=== PATIENT | female | born 1995 | race Caucasian/White ===

== ENCOUNTER 2021-05-26 09:38 | Observation (INO) ==
[2021-05-26] MEDS ORDERED: SODIUM CHLORIDE 0.9% 1,000 ML IV STA (11:25)
[2021-05-26] MEDS ORDERED: ONDANSETRON 4 MG/2 ML VIAL IV STA ×2 (11:25→15:31)
[2021-05-26 12:01] LABS: Bacteria,Urine Occasional /HPF (Few); Blood, Urine Moderate mg/dL (Negative); Glucose,Urine (UA) Negative (Negative); Ketones,Urine 80 mg/dL (Negative); Mucus,Urine Many /LPF (Occasional); Nitrite,Urine Negative (Negative); Protein,Urine 100 MG/DL; RBC,Urine 6 /HPF (0-4); Squamous Epithelial Cell,Urine Few /HPF (0-10); Urine Appearance Slightly Hazy (Clear); Urine Color Amber (Yellow); Urine Specific Gravity 1.032 (1.001-1.035)
[2021-05-26 12:07] LABS: Bilirubin,Urine Small mg/dL (Negative)
[2021-05-26 12:30] LABS: Basophils % 0.3 % (0.0-0.8); Eosinophils % 0.2 % (0.00-10.9); Hematocrit 43.8 VOL% (35.7-47.0); Hemoglobin 15.5 GM/DL (12.0-16.0); Immature Granulocytes % 0.4 %; Immature Granulocytes Absolute 0.05 #; Lymphocytes # 2.4 10*3/uL (1.4-4.0); Lymphocytes % 17.4 % (21.3-54.2); Mean Corpuscular HGB Conc 35.4 GM/DL (32-36); Mean Corpuscular Volume 86.1 FL (87-102); Mean Platelet Volume 10.6 FL (9.6-12.0); Monocytes % 5.5 % (1.7-12.7); Neutrophils % 76.2 % (38.7-73.9); Platelet Count 289 T/CUMM (130-400); Red Blood Count 5.09 MC/CUMM (3.8-5.5); Red Cell Distribution Width 11.2 % (9.3-17.3); White Blood Count 13.9 T/CUMM (4-12)
[2021-05-26 13:03] LABS: Albumin 3.9 G/DL (3.4-5.0); Bilirubin,Total 0.9 MG/DL (0.20-1.00); Calcium 9.4 MG/DL (8.5-10.1); Potassium 2.6 MMOL/L (3.5-5.1)
[2021-05-26] MEDS ORDERED: methylPREDNISolone SOD SUC 125 MG/2 ML VIAL IV STA (15:30)
[2021-05-26 16:34] LABS: Barbiturates Screen,Urine Negative (Negative); Benzodiazepines Screen,Urine Negative (Negative); Cannabinoid Screen,Urine Positive (Negative); Opiate Screen,Urine Negative (Negative); Phencyclidine Screen,Urine Negative (Negative)
[2021-05-26] MEDS: DEXTROSE 5% LACTATED RINGERS 1,000 ML IV SCH (17:05)
[2021-05-26] MEDS ORDERED: SCOPOLAMINE 1.5 MG PATCH TRANSDERM ONE ×2 (17:09→17:30)
[2021-05-26] MEDS: POTASSIUM CHLORIDE RIDER 10 MEQ/100 ML PREMIX IV PRN ×5 (17:41→22:09)
[2021-05-26] MEDS ORDERED: PROMETHAZINE 25 MG/1 ML VIAL IM PRN (17:45)
[2021-05-26] MEDS ORDERED: ONDANSETRON 4 MG/2 ML VIAL IV PRN (17:45)
[2021-05-27] MEDS: DEXTROSE 5% LACTATED RINGERS 1,000 ML IV SCH ×2 (01:13→06:37)
[2021-05-27 04:02] VITALS: BP 110/63
== END 2021-05-27 14:08 | disposition home or self-care (01) ==
LOC: N.ED 09:38 → N.EDINP 09:38 → N.LD 17:00
PROVIDERS: ADMIT Obstetrics & Gynecology; ATTEND Obstetrics & Gynecology

== ENCOUNTER 2021-12-17 06:26 | Inpatient (IN) ==
[2021-12-17] MEDS ORDERED: METHYLERGONOVINE 0.2 MG/1 ML AMP IM PRN (06:34)
[2021-12-17] MEDS ORDERED: BUTORPHANOL 1 MG/ML VIAL IV PRN (06:34)
[2021-12-17] MEDS ORDERED: OXYTOCIN/LR 20 UNIT/1,000 ML BAG IV ONE ×2 (06:34→18:45)
[2021-12-17] MEDS ORDERED: TRANEXAMIC ACID 1,000 MG in SODIUM CHLORIDE 0.9% 100 ML IV PRN (06:34)
[2021-12-17] MEDS ORDERED: LACTATED RINGERS 250 ML IV ONE (06:34)
[2021-12-17] MEDS ORDERED: LACTATED RINGERS 500 ML IV PRN (06:34)
[2021-12-17] MEDS ORDERED: CARBOPROST TROMETHAMINE 250 MCG/ML AMP IM PRN (06:34)
[2021-12-17] MEDS ORDERED: BUTORPHANOL 2 MG/ML VIAL IV PRN (06:34)
[2021-12-17] MEDS ORDERED: ONDANSETRON 4 MG/2 ML VIAL IV PRN ×2 (06:34→18:45)
[2021-12-17] MEDS ORDERED: miSOPROStoL 200 MCG TABLET RECTAL PRN (06:34)
[2021-12-17] MEDS ORDERED: MEPERIDINE 50 MG/1 ML VIAL IV PRN (06:34)
[2021-12-17 06:52] LABS: Basophils % 0.2 % (0.0-0.8); Eosinophils # 0.1 10*3/uL (0.0-0.87); Eosinophils % 0.6 % (0.00-10.9); Hematocrit 40.2 VOL% (35.7-47.0); Hemoglobin 13.2 GM/DL (12.0-16.0); Immature Granulocytes % 0.7 %; Immature Granulocytes Absolute 0.08 #; Lymphocytes # 2.7 10*3/uL (1.4-4.0); Lymphocytes % 25.1 % (21.3-54.2); Mean Corpuscular HGB Conc 32.8 GM/DL (32-36); Mean Corpuscular Volume 92.4 FL (87-102); Mean Platelet Volume 9.8 FL (9.6-12.0); Monocytes # 0.7 10*3/uL (0.11-0.8); Monocytes % 6.2 % (1.7-12.7); Neutrophils % 67.2 % (38.7-73.9); Platelet Count 341 T/CUMM (130-400); Red Blood Count 4.35 MC/CUMM (3.8-5.5); Red Cell Distribution Width 12.7 % (9.3-17.3); White Blood Count 10.9 T/CUMM (4-12)
[2021-12-17] MEDS ORDERED: OXYTOCIN/LR 20 UNIT/1,000 ML BAG IV SCH (07:00)
[2021-12-17] MEDS: LACTATED RINGERS 1,000 ML IV SCH ×2 (08:35→14:46)
[2021-12-17] MEDS ORDERED: TRANEXAMIC ACID 1,000 MG/10 ML VIAL ONE (18:13)
[2021-12-17] MEDS ORDERED: SODIUM CHLORIDE 0.9% 0 ML IV ONE (18:13)
[2021-12-17] MEDS ORDERED: miSOPROStoL 200 MCG TABLET ONE (18:13)
[2021-12-17] MEDS ORDERED: CARBOPROST TROMETHAMINE 250 MCG/ML AMP IM ONE (18:14)
[2021-12-17] MEDS ORDERED: METHYLERGONOVINE 0.2 MG/1 ML AMP ONE (18:14)
[2021-12-17 18:33] LABS: Cord Arterial Blood HCO3 24.9 MMOL/L
[2021-12-17 18:36] LABS: Cord Venous Blood HCO3 25.5 MMOL/L; Cord Venous Blood PCO2 33.4 MMHG; Cord Venous Blood PO2 32.4
[2021-12-17] MEDS ORDERED: BENZOCAINE 20%/MENTHOL 0.5% SPRAY 56 GM CAN TOP PRN (18:45)
[2021-12-17] MEDS ORDERED: BISACODYL 10 MG SUPP RECTAL PRN (18:45)
[2021-12-17] MEDS ORDERED: LANOLIN 50% CREAM 0.3 OZ TUBE TOP PRN (18:45)
[2021-12-17] MEDS ORDERED: WITCH HAZEL PADS 100/JAR TOP PRN (18:45)
[2021-12-17] MEDS ORDERED: HYDROCORTISONE 2.5% RECTAL CREAM 30 GM TUBE TOP PRN (18:45)
[2021-12-17] MEDS ORDERED: RHO(D) IMMUNE GLOBULIN 300 MCG SYRINGE IM ONE (18:45)
[2021-12-17] MEDS ORDERED: ACETAMINOPHEN 325 MG TABLET PO PRN (18:45)
[2021-12-17] MEDS ORDERED: IBUPROFEN 800 MG TABLET PO PRN (18:45)
[2021-12-17] MEDS ORDERED: MEASLES/MUMPS/RUBELLA VACCINE 0.5 ML VIAL SUBCUT ONE (18:45)
[2021-12-17] MEDS ORDERED: DIPH/TET/ACEL PERT BOOSTER VACCINE 0.5 ML VIAL IM ONE (18:45)
[2021-12-17] MEDS ORDERED: oxyCODONE/ACETAMINOPHEN 5-325 MG TABLET PO PRN ×2 (18:45)
[2021-12-17] MEDS ORDERED: DOCUSATE SODIUM 100 MG CAPSULE PO SCH (21:00)
[2021-12-17] MEDS: IBUPROFEN 100 MG/5 ML UDCUP PO PRN (23:37)
[2021-12-18] MEDS ORDERED: oxyCODONE/ACETAMINOPHEN 5-325 MG TABLET PO PRN ×2 (03:23→06:37)
[2021-12-18 05:21] LABS: Basophils % 0.2 % (0.0-0.8); Eosinophils # 0.1 10*3/uL (0.0-0.87); Eosinophils % 0.5 % (0.00-10.9); Hematocrit 31.3 VOL% (35.7-47.0); Hemoglobin 10.3 GM/DL (12.0-16.0); Immature Granulocytes % 0.5 %; Immature Granulocytes Absolute 0.06 #; Lymphocytes # 2.6 10*3/uL (1.4-4.0); Lymphocytes % 20.5 % (21.3-54.2); Mean Corpuscular HGB Conc 32.9 GM/DL (32-36); Mean Corpuscular Volume 93.4 FL (87-102); Mean Platelet Volume 10.8 FL (9.6-12.0); Monocytes # 0.8 10*3/uL (0.11-0.8); Neutrophils % 72.3 % (38.7-73.9); Platelet Count 251 T/CUMM (130-400); Red Blood Count 3.35 MC/CUMM (3.8-5.5); Red Cell Distribution Width 12.5 % (9.3-17.3); White Blood Count 12.5 T/CUMM (4-12)
[2021-12-18] MEDS: DOCUSATE SODIUM 100 MG/10 ML UDCUP PO SCH ×2 (08:53→21:39)
[2021-12-18] MEDS: IBUPROFEN 100 MG/5 ML UDCUP PO PRN (09:00)
[2021-12-18] MEDS: oxyCODONE/ACETAMINOPHEN 5-325 MG TABLET PO PRN (21:39)
[2021-12-19] MEDS: oxyCODONE/ACETAMINOPHEN 5-325 MG TABLET PO PRN (03:30)
[2021-12-19] MEDS: DOCUSATE SODIUM 100 MG/10 ML UDCUP PO SCH (09:35)
[2021-12-19] MEDS ORDERED: DIPH/TET/ACEL PERT BOOSTER VACCINE 0.5 ML VIAL IM ONE (11:00)
[2021-12-19 13:49] VITALS: BP 121/78
== END 2021-12-19 13:30 | disposition home or self-care (01) | DRG 560 ==
LOC: N.LD 06:26 → N.OB 22:50
PROVIDERS: ADMIT Obstetrics & Gynecology; ATTEND Obstetrics & Gynecology